=== PATIENT | male | born 1960 | race Caucasian/White ===

== ENCOUNTER 2018-01-19 11:59 | Emergency (ER) | payer MEDICAID ==
[~2018-01-19] VITALS: Ht 190.5 cm; Wt 72.6 kg
[2018-01-19 12:09] VITALS: BP 143/90
== END 2018-01-19 12:30 | disposition home or self-care (01) ==
LOC: ER 12:01
DX: B86 Scabies (principal); F32.9 Major depressive disorder, single episode, unspecified; Z98.890 Other specified postprocedural states
CPT/HCPCS: 99282; A4606; Z7610